=== PATIENT | female | born 1970 | race Caucasian/White ===

== ENCOUNTER → 2017-02-03 | Outpatient (CLI) | payer BC ==
--- NOTE | 2017-02-03 09:36 | MM ---
Reason for exam: clinical finding. Last mammogram was performed 5 years and 6 months ago. History: Patient had first child at age 36. Took hormonal contraceptives for 17 years beginning at age 16. Physical Findings: Nurse Summary: 1cm nodule in the right breast at 10 o'clock (nurse nakul). MG 3D Diag Mammo W/Cad GLENN Bilateral CC and MLO view(s) were taken. Prior study comparison: August 19, 2011, bilateral digital screening mammo w/CAD. March 26, 2004, mammogram, performed at [facility]. The breast tissue is heterogeneously dense. This may lower the sensitivity of mammography. No suspicious abnormality. No significant new findings when compared with previous films. These results were verbally communicated with the patient and result sheet given to the patient on 02/03/17. ASSESSMENT: Incomplete: need additional imaging evaluation, BI-RAD 0 RECOMMENDATION: Ultrasound of the right breast. (upper outer quadrant for pain/palpable)
--- NOTE | 2017-02-03 09:38 | USB ---
Reason for exam: additional evaluation requested from abnormal screening. History: Patient had first child at age 36. Took hormonal contraceptives for 17 years beginning at age 16. US Breast Limited RT Technologist: Argelia Faulkner Right breast ultrasound demonstrates no cystic or solid lesion seen. No sonographic suspicious abnormalities. No cystic or solid masses. These results were verbally communicated with the patient and result sheet given to the patient on 02/03/17. ASSESSMENT: Negative, BI-RAD 1 RECOMMENDATION: Routine screening mammogram of both breasts in 1 year.
== END ==
LOC: RADMAMWWP 07:59
PROVIDERS: ATTEND Obstetrics & Gynecology
DX: N64.4 Mastodynia (principal); N63.10 Unspecified lump in the right breast, unspecified quadrant; N63.20 Unspecified lump in the left breast, unspecified quadrant; R92.8 Other abnormal and inconclusive findings on diagnostic imaging of breast
CPT/HCPCS: 76642; G0204; G0279

== ENCOUNTER → 2018-08-21 | Outpatient (CLI) | payer BC ==
[2018-08-21 07:47] LABS: Basophils % (A) 1 %; Eosinophils # (A) 0.2 k/uL (0-0.7); Eosinophils % (A) 4 %; HCT 37.1 % (34.0-46.0); HGB 11.8 gm/dL (11.4-16.0); Lymphocytes % (A) 38 %; MCH 29.8 pg (25.0-35.0); MCHC 31.7 g/dL (31.0-37.0); Mean Platelet Volume 7.2; Monocytes # (A) 0.4 k/uL (0-1.0); Monocytes % (A) 7 %; Neutrophils # (A) 2.5 k/uL (1.3-7.7); Neutrophils % (A) 47 %; Platelet Count 251 k/uL (150-450); RBC 3.95 m/uL (3.80-5.40); RDW 14.3 % (11.5-15.5); WBC 5.2 k/uL (3.8-10.6)
== END ==
LOC: LABPAT 06:44
PROVIDERS: ATTEND Obstetrics & Gynecology
DX: Z01.812 Encounter for preprocedural laboratory examination (principal); N92.0 Excessive and frequent menstruation with regular cycle
CPT/HCPCS: 36415; 85025

== ENCOUNTER → 2018-10-27 | Outpatient (CLI) | payer BC ==
[2018-10-27 10:12] LABS: Basophils % (A) 1 %; Eosinophils # (A) 0.2 k/uL (0-0.7); Eosinophils % (A) 3 %; HCT 39.1 % (34.0-46.0); HGB 12.6 gm/dL (11.4-16.0); Lymphocytes # (A) 1.8 k/uL (1.0-4.8); Lymphocytes % (A) 32 %; MCH 30.4 pg (25.0-35.0); MCHC 32.3 g/dL (31.0-37.0); MCV 94.1 fL (80.0-100.0); Mean Platelet Volume 6.8; Monocytes # (A) 0.4 k/uL (0-1.0); Monocytes % (A) 7 %; Neutrophils # (A) 3.1 k/uL (1.3-7.7); Neutrophils % (A) 55 %; Platelet Count 243 k/uL (150-450); RBC 4.16 m/uL (3.80-5.40); RDW 13.5 % (11.5-15.5); WBC 5.6 k/uL (3.8-10.6)
== END | disposition home or self-care (01) ==
LOC: LABPAT 09:52
PROVIDERS: ATTEND Obstetrics & Gynecology
DX: Z01.812 Encounter for preprocedural laboratory examination (principal); N92.0 Excessive and frequent menstruation with regular cycle
CPT/HCPCS: 36415; 85025

== ENCOUNTER 2018-10-30 09:40 | Day surgery (SDC) | payer BC ==
[2018-10-23 11:14] VITALS: BMI 28.9
--- NOTE | 2018-10-29 20:06 | HP ---
HISTORY AND PHYSICAL DATE OF PROCEDURE: 10/30/2018. HISTORY: This is a 48-year-old 3, para 2-0-1-2 woman with a history of menometrorrhagia. She has had a benign endometrial biopsy and pelvic ultrasound showing a uterus measuring 9.2 x 4.8 x 4.5 cm with no anatomic changes or intracavitary lesions. She desires definitive surgical management and is scheduled to undergo a diagnostic hysteroscopy with NovaSure endometrial ablation. ALLERGIES: CLARITIN and VICODIN. MEDICATIONS: 1. Fluoxetine 20 mg daily. 2. Valtrex 500 mg p.r.n. 3. Xanax 0.5 mg p.r.n. PAST SURGICAL HISTORY: section x2 in 2006 and 2008. PAST MEDICAL HISTORY: 1. Dysmenorrhea. 2. Menometrorrhagia. 3. HSV. 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 Her has had a vasectomy. No history of abnormal Pap smears or STDs. SOCIAL HISTORY: She is . Negative for tobacco, alcohol, drug use. FAMILY HISTORY: Noncontributory. REVIEW OF SYSTEMS: A 12-point review of systems was completed and is positive only for that discussed above. PHYSICAL EXAMINATION: Height 5 feet 0 inches, weight 162 pounds, blood pressure 120/74, pulse 70. In general, this is a very pleasant female in no obvious distress. HEENT exam is unremarkable, with no palpable lymphadenopathy or thyromegaly. The lungs are clear to auscultation bilaterally. The heart has a regular rate and rhythm. The abdomen is soft and nontender with no rebound, no guarding and no flank pain. On pelvic examination, she has normal female external genitalia without lesions or irritation. On bimanual examination, the uterus is small, freely mobile and in the midline, with no adnexal abnormalities appreciated. ASSESSMENT: This is a 48-year-old 3, para 2 woman with a history of menometrorrhagia and dysmenorrhea who desires definitive surgical management in the form of diagnostic hysteroscopy and NovaSure endometrial ablation. The procedure has been reviewed in detail with the patient, including anticipated recovery, bleeding profile and risks. Risks include but not limited to bleeding, infection, uterine perforation with possible damage to pelvic or abdominal structures, anesthesia complications, DVT and/or PE. The patient understands these risks and agrees to proceed. She is scheduled for this procedure on 10/30/2018. MMANGELAL / IJN: [id number] /
[~2018-10-30 09:40] MED LIST: DEXAMETHASONE SOD PHOSPHATE 10 MG/ML 1 ML VIAL IV ONE; LACTATED RINGERS 1,000 ML IV SCH; MIDAZOLAM 2 MG/2 ML VIAL IV PRN; ONDANSETRON 4 MG/2 ML VIAL IVP ONE; Pre Op ABX Message 1 EACH MISC MISCELLANE ONE; SCOPOLAMINE 1.5MG/72HR PATCH TRANSDERM ONE; fentaNYL (PF) 50 MCG/ML 2 ML AMP IV PRN
[2018-10-30 10:49] VITALS: RESP 16
[2018-10-30] MEDS ORDERED: LIDOCAINE 1% 20 ML VIAL (10MG/ML) FOR IV START INTRADERMA ONE (11:00)
[2018-10-30] MEDS ORDERED: PROPOFOL 10 MG/ML 20 ML VIAL IV ONE (11:31)
[2018-10-30] MEDS ORDERED: MIDAZOLAM 2 MG/2 ML VIAL ONE (11:31)
[2018-10-30] MEDS ORDERED: KETOROLAC 30 MG/ML 1 ML VIAL ONE (11:31)
[2018-10-30] MEDS ORDERED: fentaNYL (PF) 50 MCG/ML 2 ML AMP ONE (11:31)
[2018-10-30] MEDS ORDERED: LIDOCAINE 1% INJ 10MG/ML (20 ML MDV) ONE (11:31)
--- NOTE | 2018-10-30 12:02 | P.OP ---
Date of Procedure: 10/30/18 Preoperative Diagnosis: Dysmenorrhea and menometrorrhagia Postoperative Diagnosis: Same Procedure(s) Performed: Diagnostic hysteroscopy and NovaSure endometrial ablation Surgeon: Rose Marie Capone Estimated Blood Loss (ml): 5 IV fluids (ml): 300 Urine output (ml): 200 Pathology: none sent Condition: stable Disposition: PACU Operative Findings: Fluffy endometrium with no gross intracavitary lesions Description of Procedure: After the patient and her family were met in the preoperative holding area and all questions were answered, she was taken to the operating room where anesthetic was administered without incident. She was in positioned, prepped and draped in the dorsal lithotomy position. Bladder was drained for approximately 200 mL of clear urine. Speculum was placed in the vagina and the cervix was grasped anteriorly with a single-tooth tenaculum. Uterus is sounded to 11 cm. The cervix was then sequentially dilated to allow for passage of the diagnostic hysteroscope. The hysteroscope was introduced and the above findings were noted. Of note she had a very long cervical canal. The hysteroscope was removed and the cervix was further dilated to allow for passage of the NovaSure ablation device. The ablation device was inserted with a cavity length of 5.5 cm and a width of 3.6 cm. Cavity assessment test was passed and the device was enabled. Treatment cycle was 110 seconds with a power of 109 W. Following cessation of the treatment cycle the device was removed. The hysteroscope was reintroduced and complete desiccation of the endometrium was appreciated. Hysteroscope was removed as was the tenaculum. Cervix was observed and no active bleeding was noted. All instruments were then removed from the vagina and the patient was awoken from anesthetic without incident. She was then transported to recovery area in stable condition. All counts reported to me as correct by the operating room staff.
[2018-10-30 12:15] VITALS: TEMP 97
[2018-10-30] MEDS ORDERED: LACTATED RINGERS 1,000 ML IV ONE (12:49)
[2018-10-30 13:09] VITALS: BP 108/73; PULSE 72
== END 2018-10-30 13:24 | disposition home or self-care (01) ==
LOC: OR 09:40
PROVIDERS: ATTEND Obstetrics & Gynecology
DX: N92.1 Excessive and frequent menstruation with irregular cycle (principal); N94.6 Dysmenorrhea, unspecified; Z79.899 Other long term (current) drug therapy; Z88.5 Allergy status to narcotic agent; Z91.030 Bee allergy status
CPT/HCPCS: 81025; 58563; J2250; J1100; J2405; J2001; J3010; J1885; J2704

== ENCOUNTER → 2019-04-03 | Outpatient (CLI) | payer BC ==
--- NOTE | 2019-04-03 08:00 | CT ---
EXAMINATION TYPE: CT soft tissue neck w con DATE OF EXAM: 04/03/2019 COMPARISON: None HISTORY: Rt neck mass CT DLP: 475.6 mGycm CONTRAST: CT scan of the neck is performed with IV Contrast, patient injected with 100 mL of Isovue 300. Contrast enhanced CT of the neck was performed from the skull base through the lung apices. AIRWAY: The supraglottic, glottic, and subglottic portions of the airway appear patent and free of mass. SALIVARY GLANDS: The submandibular and parotid glands are free of mass or inflammatory process. THYROID GLAND: Large cystic nodule identified in the right thyroid lobe measuring 2.5 x 3.5 cm. Left thyroid lobe is of normal size and free of nodule. LYMPH NODES: No adenopathy seen greater than 1cm. LUNG APICES: No nodule or mass is seen. OTHER: Vascular structures are patent. Mild degenerative change of the cervical spine. No abscess s een. IMPRESSION: 1.Large cystic nodule identified in the right thyroid lobe measuring 2.5 x 3.5 cm.
== END | disposition home or self-care (01) ==
LOC: RADCTMAIN 07:01
PROVIDERS: ATTEND Otolaryngology
DX: E04.1 Nontoxic single thyroid nodule (principal); Z88.8 Allergy status to other drugs, medicaments and biological substances; Z88.5 Allergy status to narcotic agent
CPT/HCPCS: 70491; Q9967

== ENCOUNTER 2019-04-19 12:43 | Day surgery (SDC) | payer BC ==
[2019-04-11 15:36] VITALS: BMI 29.8
[~2019-04-19 12:43] MED LIST changes: -DEXAMETHASONE SOD PHOSPHATE 10 MG/ML 1 ML VIAL IV ONE; -MIDAZOLAM 2 MG/2 ML VIAL IV PRN; -ONDANSETRON 4 MG/2 ML VIAL IVP ONE; -Pre Op ABX Message 1 EACH MISC MISCELLANE ONE; -SCOPOLAMINE 1.5MG/72HR PATCH TRANSDERM ONE; -fentaNYL (PF) 50 MCG/ML 2 ML AMP IV PRN
[2019-04-19] MEDS ORDERED: LIDOCAINE 1% 20 ML VIAL (10MG/ML) FOR IV START INTRADERMA ONE (13:10)
[2019-04-19 13:11] VITALS: RESP 16; TEMP 98.4
[2019-04-19] MEDS ORDERED: SCOPOLAMINE 1.5MG/72HR PATCH TRANSDERM ONE (13:29)
[2019-04-19] MEDS ORDERED: PROPOFOL 10 MG/ML 20 ML VIAL IV ONE (14:15)
[2019-04-19] MEDS ORDERED: LIDOCAINE 1% INJ 10MG/ML (20 ML MDV) ONE (14:15)
[2019-04-19 15:08] VITALS: BP 131/87; PULSE 77
--- NOTE | 2019-04-19 15:09 | P.PCN ---
Date of Procedure: 04/19/19 Procedure(s) Performed: Brief history: Patient is a pleasant 49-year-old white female scheduled for an elective upper endoscopy as well as colonoscopy as a part of evaluation of GERD/prior history of peptic ulcer disease and screening for colon cancer Procedure performed: Esophagogastroduodenoscopy with biopsy Colonoscopy Preoperative diagnosis: GERD Screening for colon cancer Anesthesia: MAC Procedure: After informed consent was obtained from the patient was brought into the endoscopy unit and IV sedation was administered by anesthesia under continuous monitoring. Initially upper endoscopy was done. The Olympus GF 160 video endoscope was inserted inserted into the mouth and esophagus intubated without any difficulty and was gradually advanced into the stomach and duodenum and carefully examined. The bulb and second part of the duodenum appeared normal. The scope was then withdrawn into the stomach adequately insufflated with air and upon careful examination the antrum had mild gastritis and biopsies were done from this area. Thed body, cardia and fundus appeared normal. The scope was then withdrawn into the esophagus. The GE junction was located at 40 cm to the incisors. It appeared regular with no erythema erosions or ulcerations. Rest of the esophagus appeared normal. Patient tolerated the procedure well. At this time the patient continued to remain sedation. Initial digital rectal examination was normal. Olympus CF 160 video colonoscope was then inserted into the rectum and gradually advanced to the cecum without any difficulty. Careful examination was performed as the scope was gradually being withdrawn. The prep was excellent. The cecum, ascending colon, transverse colon, descending colon, sigmoid colon and rectum appeared normal. Retroflexion was performed in the rectum and no lesions were noted. Patient tolerated the procedure well. Impression: 1. Upper endoscopy revealed mild antral gastritis but no evidence of esophagitis or peptic ulcer disease 2. Colonoscopy was essentially within normal limits with no evidence of colitis or colorectal neoplasia Recommendations: Findings of this examination were discussed with the patient as well as her family. She was advised to continue with Prilosec 20 mg daily and follow antireflux measures. She can have a repeat colonoscopy in 10 years]
== END 2019-04-19 15:25 | disposition home or self-care (01) ==
LOC: ORWHC2ENDO 12:43
PROVIDERS: ATTEND Internal Medicine Gastroenterology
DX: Z12.11 Encounter for screening for malignant neoplasm of colon (principal); K29.50 Unspecified chronic gastritis without bleeding; K21.9 Gastro-esophageal reflux disease without esophagitis; Z87.11 Personal history of peptic ulcer disease; Z88.6 Allergy status to analgesic agent; Z88.5 Allergy status to narcotic agent; Z79.899 Other long term (current) drug therapy; Z98.891 History of uterine scar from previous surgery; Z91.030 Bee allergy status
CPT/HCPCS: 81025; 88305; 43239; J2001; J2704; G0121

== ENCOUNTER → 2020-01-03 | Outpatient (CLI) | payer BC ==
--- NOTE | 2020-01-03 16:04 | US ---
EXAMINATION TYPE: US thyroid st tissue head/neck DATE OF EXAM: 01/03/2020 COMPARISON: CLINICAL HISTORY: E04.1 NONTOXIC SINGLE THYROID NODULE. CT showed nodule. GLAND SIZE: Right Lobe: 4.5 x 1.7 x 1.7 cm Overall Parenchyma: homogenous Left Lobe: 3.2 x 1.5 x 0.9 cm Overall Parenchyma: homogeneous Isthmus Thickness: 0.3 cm NODULES RIGHT: # of nodules measured on right: 1 1. 1.9 X 1.2 x 1.1 cm mixed nodule at the mid pole with well-defined margins. This nodule is wider than tall and shows no intranodular vascularity. Prior size: No prior LEFT: # of nodules measured on left: 0 ISTHMUS: # of nodules measured in the isthmus: 0 Bilateral neck scanned, no evidence of lymphadenopathy. IMPRESSION: TR 3 lesion, mildly suspicious, short interval follow-up could be performed to assess for stability.
[2020-01-03 17:34] LABS: T4, Free (Free Thyroxine) 0.88 ng/dL (0.78-2.19)
[2020-01-04 01:18] LABS: Thyroid Peroxidase Antibodies 69.6 U/mL (0.0-60.0)
== END | disposition home or self-care (01) ==
LOC: RADUSWWP 15:02
PROVIDERS: ATTEND Internal Medicine Endocrinology, Diabetes & Metabolism
DX: E04.1 Nontoxic single thyroid nodule (principal)
CPT/HCPCS: 76536; 84439; 84443; 84480; 86376

== ENCOUNTER → 2020-10-21 | Outpatient (CLI) | payer BC ==
--- NOTE | 2020-10-23 09:46 | MM ---
Reason for exam: clinical finding. Last mammogram was performed 3 years and 9 months ago. History: Patient had first child at age 36. Took hormonal contraceptives for 17 years beginning at age 16. Physical Findings: Nurse did not find any significant physical abnormalities on exam. MG 3D Diag Mammo W/Cad GLENN Bilateral CC and MLO view(s) were taken. Prior study comparison: February 03, 2017, bilateral MG 3d diag mammo w/cad GLENN. August 19, 2011, bilateral digital screening mammo w/CAD. There are scattered fibroglandular densities. No significant new findings when compared with previous films. These results were verbally communicated with the patient and result sheet given to the patient on 10/21/20. ASSESSMENT: Incomplete: need additional imaging evaluation, BI-RAD 0 RECOMMENDATION: Ultrasound of the right breast. (upper outer and axilla at lump)
--- NOTE | 2020-10-23 09:49 | USB ---
Reason for exam: additional evaluation requested from abnormal screening. History: Patient had first child at age 36. Took hormonal contraceptives for 17 years beginning at age 16. US Breast Limited RT Right limited breast ultrasound including focal area of concern, retroareolar and axilla demonstrates no cystic or solid lesion seen. No sonographic findings. These results were verbally communicated with the patient and result sheet given to the patient on 10/21/20. ASSESSMENT: Benign, BI-RAD 2 RECOMMENDATION: Routine screening mammogram of both breasts in 1 year. Manage on a clinical basis with regard to right lumps.
== END | disposition home or self-care (01) ==
LOC: RADMAMWWP 13:16
PROVIDERS: ATTEND Obstetrics & Gynecology
DX: R92.8 Other abnormal and inconclusive findings on diagnostic imaging of breast (principal); Z79.3 Long term (current) use of hormonal contraceptives
CPT/HCPCS: 77062; 77066

== ENCOUNTER → 2020-10-21 | Outpatient (CLI) | payer BC ==
[2020-10-21 17:12] LABS: T4, Free (Free Thyroxine) 0.7 ng/dL (0.78-2.19)
--- NOTE | 2020-10-21 17:38 | US ---
EXAMINATION TYPE: US thyroid st tissue head/neck DATE OF EXAM: 10/21/2020 COMPARISON: 01/03/2020 CLINICAL HISTORY: E04.1 Thyroid nodule. On low dose synthroid, follow up scan GLAND SIZE: Right Lobe: 4.9 x 1.5 x 1.4 cm Overall Parenchyma: homogenous Left Lobe: 3.2 x 1.1 x 1.2 cm Overall Parenchyma: homogeneous Isthmus Thickness: 0.3 cm NODULES RIGHT: # of nodules measured on right: 1 1. 1.0 X 0.8 x 0.9 cm, mid , solid or almost completely solid nodule, which is taller than wide, wi th ill-defined margins, with course calcifications. Prior size: 1.9 x 1.2 x 1.1 cm LEFT: # of nodules measured on left: 0 ISTHMUS: # of nodules measured in the isthmus: 0 Bilateral neck scanned, no evidence of lymphadenopathy. IMPRESSION: Within the right lobe of the thyroid gland there is a 1 cm hypoechoic solid structure with coarse munira cifications. This is a TI-RADS 4 nodule. Continued sonographic follow-up is recommended. 2017 ACR TI-RADS LEVEL: 4 *Highest TI-RADS level nodule reported
== END | disposition home or self-care (01) ==
LOC: RADUSWWP 13:12
PROVIDERS: ATTEND Internal Medicine Endocrinology, Diabetes & Metabolism
DX: E04.1 Nontoxic single thyroid nodule (principal)
CPT/HCPCS: 76536; 84439; 84443

== ENCOUNTER 2021-03-19 15:01 | Emergency (ER) | payer BC ==
[2021-03-19 15:30] VITALS: BP 162/99; PULSE 105; RESP 20; TEMP 98.4
--- NOTE | 2021-03-19 15:53 | XR ---
EXAMINATION TYPE: XR wrist complete RT DATE OF EXAM: 03/19/2021 COMPARISON: NONE HISTORY: 51-year-old female tripped and fall, injury, pain TECHNIQUE: 4 views FINDINGS: Minimal positive ulnar variance. Some underlying TFC calcifications. The radiocarpal and distal radio ulnar joint as well as the midcarpal compartment appear intact. No acute fracture, subluxation, dislo cation. IMPRESSION: Faint TFC calcifications may be idiopathic or could reflect underlying CPPD. No acute osseous abnorma lity seen.
--- NOTE | 2021-03-19 18:13 | ED ---
General Adult HPI - General Chief complaint: Extremity Injury, Upper Stated complaint: Right Arm Injury Time Seen by Provider: 03/19/21 17:38 Source: patient, RN notes reviewed Mode of arrival: ambulatory Limitations: no limitations - History of Present Illness Initial comments: 51-year-old female presents to the emergency room for a chief complaint of right wrist pain. Patient states she had a trip and fall in her pet tripped her 3 days ago. States her wrist has been hurting since that time. States it seemed a little bit more sore today. Patient denies any other injuries. Patient states she tried to call orthopedics but they could not get her in. She tried to go to urgent care as well but their x-ray machine was down so she came to the ER.Patient has no other complaints at this time including shortness of breath, chest pain, abdominal pain, nausea or vomiting, headache, or visual changes. - Related Data Home Medications Medication Instructions Recorded Confirmed Valtrex-Unknown Dose 1 each PO BID PRN 08/24/18 04/11/19 EPINEPHrine (Auto Inject) [Epipen] 0.3 mg IM ONCE PRN 10/23/18 04/11/19 Omeprazole [PriLOSEC] 20 mg PO DAILY 04/11/19 04/11/19 Allergies Allergy/AdvReac Type Severity Reaction Status Date / Time bee venom protein (honey bee) Allergy Anaphylaxis Verified 03/19/21 15:30 acetaminophen [From Vicodin] AdvReac VERY HYPER Verified 03/19/21 15:30 AND INCREASES PAIN hydrocodone [From Vicodin] AdvReac VERY HYPER Verified 03/19/21 15:30 AND INCREASES PAIN Review of Systems ROS Statement: Those systems with pertinent positive or pertinent negative responses have been documented in the HPI. ROS Other: All systems not noted in ROS Statement are negative. Past Medical History Past Medical History: Asthma, GERD/Reflux Additional Past Medical History / Comment(s): allergy related asthma no RX, hx of bleeding ulcer in past, has current "mass" on neck that is having aspirated on 04/12/19 History of Any Multi-Drug Resistant Organisms: None Reported Past Surgical History: Section, Uterine Ablation Additional Past Surgical History / Comment(s): C/S x2, oral surgery Past Anesthesia/Blood Transfusion Reactions: Previous Problems w/ Anesthesia, Family History of Problems w/ Anesthesia Additional Past Anesthesia/Blood Transfusion Reaction / Comment(s): "anesthesia is not very effective..have woken up during surgery and trouble going down". mother has woken up during surgery Past Psychological History: No Psychological Hx Reported Smoking Status: Never smoker Past Alcohol Use History: Daily Past Drug Use History: Marijuana - Past Family History Mother Family Medical History: Deep Vein Thrombosis (DVT) General Exam Limitations: no limitations General appearance: alert, in no apparent distress Head exam: Present: atraumatic Eye exam: Present: normal appearance, PERRL, EOMI. Absent: scleral icterus, conjunctival injection ENT exam: Present: normal exam, mucous membranes moist Neck exam: Present: normal inspection, full ROM. Absent: tenderness Respiratory exam: Present: normal lung sounds bilaterally. Absent: respiratory distress, wheezes Cardiovascular Exam: Present: regular rate, normal rhythm, normal heart sounds GI/Abdominal exam: Present: soft, normal bowel sounds. Absent: distended, tenderness Extremities exam: Present: tenderness (Minimal tenderness in the distal right forearm. There is no scaphoid tenderness.), normal capillary refill (Capillary refill less than 2 seconds, radial pulse 2+ right upper extremity.), other (Sensation intact right upper extremity.). Absent: full ROM (Patient has pain with extension of the right wrist but is able to extend about 20. Full flexion. Full range of motion of the fingers in the right hand.), joint swelling (No edema of the right wrist.) Course Vital Signs 03/19/21 15:28 Temperature 98.4 F Pulse Rate 105 H Respiratory 20 Rate Blood Pressure 162/99 O2 Sat by Pulse 96 Oximetry Medical Decision Making - Medical Decision Making Vitals are stable. HPI and physical exam as documented. X-ray shows no fracture. Patient was wrapped with an Umesh wrap. Will be referred to orthopedics. Will return for any worsening symptoms. Disposition Clinical Impression: Wrist pain Disposition: HOME SELF-CARE Condition: Good Instructions (If sedation given, give patient instructions): Wrist Injury (ED) Additional Instructions: Please take Motrin and Tylenol for pain. Rest ice and elevate the wrist. Follow-up with your doctor. Return to the emergency room for any worsening s ymptoms. Is patient prescribed a controlled substance at d/c from ED?: No Referrals: Leobardo Brown DO [Primary Care Provider] - 1-2 days Julissa Schneider DO [Doctor of Osteopathic Medicine] - 1-2 days Time of Disposition: 18:11
== END 2021-03-19 18:16 | disposition home or self-care (01) ==
LOC: EC 15:01
DX: M25.531 Pain in right wrist (principal); K21.9 Gastro-esophageal reflux disease without esophagitis; F12.90 Cannabis use, unspecified, uncomplicated; Z79.899 Other long term (current) drug therapy; W01.0XXA Fall on same level from slipping, tripping and stumbling without subsequent striking against object, initial encounter
CPT/HCPCS: 99284

== ENCOUNTER → 2023-05-08 | Outpatient (CLI) | payer BC ==
[2023-05-08 11:09] LABS: Basophils # (A) 0.04 X 10*3/uL (0.00-0.10); Eosinophils # (A) 0.18 X 10*3/uL (0.04-0.35); Eosinophils % (A) 4.4 %; HCT 39.5 % (37.2-46.3); HGB 13.3 g/dL (12.0-15.0); Lymphocytes # (A) 2.01 X 10*3/uL (0.90-5.00); Lymphocytes % (A) 48.7 %; MCH 33.5 pg (27.0-32.0); MCHC 33.7 g/dL (32.0-37.0); MCV 99.5 FL (80.0-97.0); Mean Platelet Volume 9.5 FL (9.5-12.2); Monocytes # (A) 0.34 X 10*3/uL (0.20-1.00); Monocytes % (A) 8.2 %; NRBC Per 100 WBC 0 X 10*3/uL (0.00-0.01); Neutrophils # (A) 1.55 X 10*3/uL (1.80-7.70); Neutrophils % (A) 37.5 %; Platelet Count 206 X 10*3/uL (140-440); RBC 3.97 X 10*6/uL (4.10-5.20); RDW 12.4 % (11.5-14.5); WBC 4.13 X 10*3/uL (4.50-10.00)
[2023-05-08 11:34] LABS: Chol/HDL Ratio 4.11 Ratio; LDL Cholesterol,Calculated 150.7 mg/dL (0.0-131.0)
--- NOTE | 2023-05-09 10:15 | MM ---
Reason for Exam: Screening (asymptomatic). Last mammogram was performed 2 year(s) and 7 month(s) ago. Patient History: Menarche at age 11. First Full-Term at age 36. Late child-bearing (after 30). Perimenopausal. Hormonal Contraceptives for 17 years from age 16 until age 33. Risk Values: Susan 5 year model risk: 1.6%. NCI Lifetime model risk: 11.4%. Prior Study Comparison: 08/19/2011 Bilateral Screening Mammogram, [facility]. 02/03/2017 Bilateral Diagnostic Mammogram, [facility]. 10/21/2020 Bilateral Diagnostic Mammogram, [facility]. Tissue Density: There are scattered fibroglandular densities. Findings: Analyzed By CAD. There is no suspicious group of microcalcifications or new suspicious mass. Overall Assessment: Negative, BI-RAD 1 Management: Screening Mammogram of both breasts in [address] [facility] will attempt to contact patient to return for supplemental views and ultrasound if indicated. Patient should continue monthly self-breast exams. A clinical breast exam by your physician is recommended on an annual basis. This exam should not preclude additional follow-up of suspicious palpable abnormalities. Note on Susan scores and lifetime risk: 1. A Susan score greater than 3% is considered moderate risk. If this is the case, consider specialist referral to assess eligibility for a risk reducing agent. 2. If overall lifetime risk for the development of breast cancer is 20% or higher, the patient may qualify for future screening with alternating mammogram and breast MRI. Electronically signed and approved by: Milton Jennings DO
== END | disposition home or self-care (01) ==
LOC: RADMAMWWP 07:14
PROVIDERS: ATTEND Obstetrics & Gynecology
DX: Z12.31 Encounter for screening mammogram for malignant neoplasm of breast (principal); Z00.00 Encounter for general adult medical examination without abnormal findings; Z11.59 Encounter for screening for other viral diseases
CPT/HCPCS: 77063; 77067; 80061; 83036; 84443; 85025; 86803

== ENCOUNTER 2023-06-24 19:27 | Emergency (ER) | payer BC ==
--- NOTE | 2023-06-24 19:51 | ED ---
Chest Pain HPI - General Source: patient, family, RN notes reviewed Mode of arrival: ambulatory Limitations: no limitations <Jaquelin Connors - Last Filed: 06/24/23 19:50> <Lynn Lipscomb - Last Filed: 06/25/23 04:18> - General Chief Complaint: Chest Pain Stated Complaint: Heart Attack Symptoms Time Seen by Provider: 06/24/23 19:50 - History of Present Illness Initial Comments: Patient is a 53-year-old female presented to the ER with chief complaint of dizziness. Patient states around 6 PM she started experience nausea and left upper extremity pain. She states shortly after she started feeling she was going to pass out. Denies any known cardiac history. (Jaquelin Connors) 53-year-old female presenting with chief complaint of dizziness. Patient states that she started to experience some lightheadedness. At 1 point she felt like she was going to pass out, she was having tunnel vision and tinnitus. She has also been experiencing nausea, no vomiting. She denies any chest pain or difficulty breathing. She has been getting a sharp and stabbing pain to the left upper arm. No fevers or chills. No cough, congestion, sore throat. No abdominal pain. No palpitations. (Lynn Lipscomb) - Related Data Home Medications Medication Instructions Recorded Confirmed Valtrex-Unknown Dose 1 each PO BID PRN 08/24/18 04/11/19 EPINEPHrine (Auto Inject) [Epipen] 0.3 mg IM ONCE PRN 10/23/18 04/11/19 Omeprazole [PriLOSEC] 20 mg PO DAILY 04/11/19 04/11/19 Previous Rx's Medication Instructions Recorded Meclizine [Antivert] 25 mg PO BID PRN #10 tab 06/25/23 Ondansetron Odt [Zofran Odt] 4 mg PO Q8HR PRN #20 tab 06/25/23 Allergies Allergy/AdvReac Type Severity Reaction Status Date / Time bee venom protein (honey bee) Allergy Anaphylaxis Verified 03/19/21 15:30 acetaminophen [From Vicodin] AdvReac VERY HYPER Verified 03/19/21 15:30 AND INCREASES PAIN hydrocodone [From Vicodin] AdvReac VERY HYPER Verified 03/19/21 15:30 AND INCREASES PAIN Review of Systems ROS Other: All systems not noted in ROS Statement are negative. <Jaquelin Connors - Last Filed: 06/24/23 19:50> ROS Other: All systems not noted in ROS Statement are negative. <Lynn Lipscomb - Last Filed: 06/25/23 04:18> ROS Statement: Those systems with pertinent positive or pertinent negative responses have been documented in the HPI. EKG Findings - EKG Comments: EKG Findings:: EKG shows sinus rhythm ventricular rate 97. MI interval 125. QRS 82. QT 335. QTc 389. No ST deviation <LipscombLynn - Last Filed: 06/25/23 04:18> Past Medical History Past Medical History: Asthma, GERD/Reflux Additional Past Medical History / Comment(s): allergy related asthma no RX, hx of bleeding ulcer in past, has current "mass" on neck that is having aspirated on 04/12/19 History of Any Multi-Drug Resistant Organisms: None Reported Past Surgical History: Section, Uterine Ablation Additional Past Surgical History / Comment(s): C/S x2, oral surgery Past Anesthesia/Blood Transfusion Reactions: Previous Problems w/ Anesthesia, Family History of Problems w/ Anesthesia Additional Past Anesthesia/Blood Transfusion Reaction / Comment(s): "anesthesia is not very effective..have woken up during surgery and trouble going down". mother has woken up during surgery Past Psychological History: No Psychological Hx Reported Smoking Status: Never smoker Past Alcohol Use History: Daily Past Drug Use History: Marijuana - Past Family History Mother Family Medical History: Deep Vein Thrombosis (DVT) <Jaquelin Connors - Last Filed: 06/24/23 19:50> General Exam Limitations: no limitations <Jaquelin Connors - Last Filed: 06/24/23 19:50> Limitations: no limitations General appearance: alert, in no apparent distress Head exam: Present: atraumatic, normocephalic Eye exam: Present: normal appearance, EOMI Neck exam: Present: normal inspection Respiratory exam: Present: normal lung sounds bilaterally. Absent: respiratory distress, wheezes, rales, rhonchi, stridor Cardiovascular Exam: Present: regular rate, normal rhythm, normal heart sounds. Absent: systolic murmur, diastolic murmur, rubs, gallop, clicks Neurological exam: Present: alert, oriented X3 Expanded Cerebellar function: Finger to Nose: Normal, Heel to [place]: Normal Eye Response: (4) open spontaneously Motor Response: (6) obeys commands Verbal Response: (5) oriented [place] Total: 15 Psychiatric exam: Present: normal affect, normal mood Skin exam: Present: warm, dry <Lynn Lipscomb - Last Filed: 06/25/23 04:18> - General Exam Comments Initial Comments: Visual Physical Exam Vital signs reviewed General: Well-appearing, nontoxic, no acute distress. anxious Head: Normocephalic, atraumatic Eyes: PERRLA, EOMI ENT: Airway patent Chest: Nonlabored breathing Skin: No visual rash, normal skin tone Neuro: Alert and oriented 3 Musculoskeletal: No gross abnormalities (Jaquelin Connors) Course Vital Signs 06/24/23 06/25/23 06/25/23 19:32 00:30 00:50 Temperature 98.6 F 97.6 F Pulse Rate 100 90 Pulse Rate [ 79 Sitting] Pulse Rate [ 79 Standing] Pulse Rate [ 78 Supine] Respiratory 46 H 18 Rate Blood Pressure 174/104 156/88 Blood Pressure 154/84 [Sitting] Blood Pressure 149/89 [Standing] Blood Pressure 150/97 [Supine] O2 Sat by Pulse 99 99 Oximetry 06/25/23 01:59 Temperature Pulse Rate 79 Pulse Rate [ Sitting] Pulse Rate [ Standing] Pulse Rate [ Supine] Respiratory Rate Blood Pressure 138/92 Blood Pressure [Sitting] Blood Pressure [Standing] Blood Pressure [Supine] O2 Sat by Pulse 99 Oximetry Chest Pain MDM <Jaquelin Connors - Last Filed: 06/24/23 19:50> <Lynn Lipscomb - Last Filed: 06/25/23 04:18> - MDM I performed the quick note portion of this chart. Electronically signed by Jaquelin Connors PA-C (Jaquelin Connors) Was pt. sent in by a medical professional or institution (JADYN Schmidt, COURT MAGISTRATE, urgent care, hospital, or alf...) When possible be specific @ -No Did you speak to anyone other than the patient for history (EMS, parent, family, police, friend...)? What history was obtained from this source @ -No Did you review nursing and triage notes (agree or disagree)? Why? @ -I reviewed and agree with nursing and triage notes Were old charts reviewed (outside hosp., previous admission, EMS record, old EKG, old radiological studies, urgent care reports/EKG's, alf records)? Report findings @ -No old charts were reviewed Differential Diagnosis (chest pain, altered mental status, abdominal pain women, abdominal pain men, vaginal bleeding, weakness, fever, dyspnea, syncope, headache, dizziness, GI bleed, back pain, seizure, CVA, palpatations, mental health, musculoskeletal)? @ -MDM Differential Dizziness: Benign paroxysmal positional Vertigo, Menieres disease, otitis media, acoustic neuroma, vertebrobasilar insufficiency, cerebellar stroke, encephalitis, hypovolemic, arrhythmia, coronary artery syndrome, anemia this is not meant to be an all-inclusive list EKG interpreted by me (3pts min.). @ -As above X-rays interpreted by me (1pt min.). @ -Chest x-ray shows no acute process CT interpreted by me (1pt min.). @ -None done U/S interpreted by me (1pt. min.). @ -None done What testing was considered but not performed or refused? (CT, X-rays, U/S, labs)? Why? @ -None What meds were considered but not given or refused? Why? @ -None Did you discuss the management of the patient with other professionals (professionals i.e. , PA, COURT MAGISTRATE, lab, RT, psych nurse, social service technician, welder production line arc, teacher, operations officer trust department, insurance case manager)? Give summary @ -No Was smoking cessation discussed for >3mins.? @ -No Was critical care preformed (if so, how long)? @ -No Were there social determinants of health that impacted care today? How? (Homelessness, low income, unemployed, alcoholism, drug addiction, transportation, low edu. Level, literacy, decrease access to med. care, residential, rehab)? @ -No Was there de-escalation of care discussed even if they declined (Discuss DNR or withdrawal of care, Hospice)? DNR status @ -No What co-morbidities impacted this encounter? (DM, HTN, Smoking, COPD, CAD, Cancer, CVA, ARF, Chemo, Hep., AIDS, mental health diagnosis, sleep apnea, morbid obesity)? @ -None Was patient admitted / discharged? Hospital course, mention meds given and route, prescriptions, significant lab abnormalities, going to OR and other pertinent info. @ -This is a 53-year-old female presenting with chief complaint of dizziness and nausea. Started abruptly today. Workup is initiated by triage. The patient has no leukocytosis or anemia. She has 2 negative troponins. Minor transaminitis. Glucose 114. She is negative for influenza, RSV, and COVID. Chest x-ray shows no acute process. EKG shows sinus rhythm. I came out to the waiting room to evaluate the patient, she was sitting in a wheelchair showing no acute signs of distress. Heart and lungs are clear to auscultation and she had normal [id number] and [id number] test. I ordered Zofran, meclizine, and 1 L fluid bolus. Patient was later brought back to a hallway bed and orthostatic vitals were performed which were WNL. On reassessment the patient is resting in the stretcher showing no acute signs of distress. I offered admission for observation to the patient, she stated she would rather go home and follow-up with her PCP. I believe this is reasonable. She is provided with a referral to cardiology. Discharged home. Follow-up with PCP. Report back to ER with any new or worsening symptoms. Discussed return parameters and answered all questions. Patient conveyed verbal understanding and agreed to the plan. I discussed this case in detail with my attending Dr. Navarro Undiagnosed new problem with uncertain prognosis? @ -No Drug Therapy requiring intensive monitoring for toxicity (Heparin, Nitro, Insulin, Cardizem)? @ -No Were any procedures done? @ -No Diagnosis/symptom? @ -Dizziness Acute, or Chronic, or Acute on Chronic? @ -Acute Uncomplicated (without systemic symptoms) or Complicated (systemic symptoms)? @ -Uncomplicated Side effects of treatment? @ -No Exacerbation, Progression, or Severe Exacerbation? @ -No Poses a threat to life or bodily function? How? (Chest pain, [place], [place], pneumonia, PE, COPD, DKA, ARF, appy, cholecystitis, CVA, Diverticulitis, Homicidal, Suicidal, threat to staff... and all critical care pts) @ -Low likelihood (Lynn Lipscomb) Disposition <Jaquelin Connors - Last Filed: 06/24/23 19:50> Is patient prescribed a controlled substance at d/c from ED?: No Time of Disposition: 01:43 <Lynn Lipscomb - Last Filed: 06/25/23 04:18> Clinical Impression: Dizziness Disposition: HOME SELF-CARE Condition: Fair Instructions (If sedation given, give patient instructions): Dizziness (ED) Additional Instructions: Follow-up with PCP and cardiology. Report back to ER with any new or worsening symptoms. Prescriptions: Meclizine [Antivert] 25 mg PO BID PRN #10 tab PRN Reason: Vertigo Ondansetron Odt [Zofran Odt] 4 mg PO Q8HR PRN #20 tab PRN Reason: Nausea Referrals: None,Stated [REFERRING] - 1-2 days
[2023-06-24 20:20] LABS: Basophils % (A) 1 %; Eosinophils # (A) 0.1 k/uL (0-0.7); Eosinophils % (A) 2 %; HCT 43.4 % (34.0-46.0); HGB 15.1 gm/dL (11.4-16.0); Lymphocytes # (A) 2.4 k/uL (1.0-4.8); Lymphocytes % (A) 32 %; MCH 34.9 pg (25.0-35.0); MCHC 34.8 g/dL (31.0-37.0); MCV 100.4 fL (80.0-100.0); Mean Platelet Volume 7.5; Monocytes # (A) 0.4 k/uL (0-1.0); Monocytes % (A) 6 %; Neutrophils # (A) 4.3 k/uL (1.3-7.7); Neutrophils % (A) 58 %; Platelet Count 260 k/uL (150-450); RBC 4.32 m/uL (3.80-5.40); RDW 11.8 % (11.5-15.5); WBC 7.5 k/uL (3.8-10.6)
[2023-06-24 20:29] LABS: ALT 89 U/L (4-34); AST 64 U/L (14-36); African American GFR (CKD) >90 (>60 ml/min/1.73 sqM); Alkaline Phosphatase 93 U/L (38-126); Anion Gap 13 mmol/L; Blood Urea Nitrogen 14 mg/dL (7-17); Calcium 10.1 mg/dL (8.4-10.2); Carbon Dioxide 23 mmol/L (22-30); Chloride 106 mmol/L (98-107); Glucose 114 mg/dL (74-99); Magnesium 1.7 mg/dL (1.6-2.3); Non-African American GFR(CKD) >90 (>60 ml/min/1.73 sqM); Potassium 3.7 mmol/L (3.5-5.1); Sodium 142 mmol/L (137-145); Total Bilirubin 0.6 mg/dL (0.2-1.3); Total Protein 8.1 g/dL (6.3-8.2)
[2023-06-24 20:38] LABS: Partial Thromboplastin Time 24.5 sec (22.0-30.0); Prothrombin Time 10.7 sec (10.0-12.5)
--- NOTE | 2023-06-24 21:09 | XR ---
EXAMINATION TYPE: XR chest 2V DATE OF EXAM: 06/24/2023 8:39 PM CLINICAL INDICATION:Female, 53 years old with history of chest pain; [facility] COMPARISON: None TECHNIQUE: XR chest 2V Frontal and lateral views of the chest. FINDINGS: Lungs/Pleura: There is no evidence of pleural effusion, focal consolidation, or pneumothorax. Pulmonary vascularity: Unremarkable. Heart/mediastinum: Cardiomediastinal silhouette is unremarkable. Musculoskeletal: No acute osseous pathology. IMPRESSION: No acute cardiopulmonary disease/process.
[2023-06-25] MEDS: MECLIZINE 12.5 MG TAB PO STA (00:27)
[2023-06-25] MEDS: ONDANSETRON ODT 4 MG TAB PO STA (00:27)
[2023-06-25] MEDS: SODIUM CHLORIDE 0.9% 1,000 ML IV ONE (00:49)
[2023-06-25 00:54] VITALS: RESP 18; TEMP 97.6
[2023-06-25 02:11] VITALS: BP 138/92; PULSE 79
== END 2023-06-25 02:10 | disposition home or self-care (01) ==
LOC: EC 19:27
DX: R42 Dizziness and giddiness (principal); R74.01 Elevation of levels of liver transaminase levels; J45.909 Unspecified asthma, uncomplicated; F12.90 Cannabis use, unspecified, uncomplicated; K21.9 Gastro-esophageal reflux disease without esophagitis; Z20.822 Contact with and (suspected) exposure to COVID-19; Z79.899 Other long term (current) drug therapy; Z88.5 Allergy status to narcotic agent; Z88.6 Allergy status to analgesic agent; Z91.030 Bee allergy status
CPT/HCPCS: 36415; 71046; 80053; 83735; 84484; 85025; 85610; 85730; 87636; 93005; 96360; 99285